=== PATIENT | female | born 1980 ===

== ENCOUNTER 2018-10-15 11:20 | Outpatient (CLI) | payer OTHER ==
[~2018-10-15] VITALS: Ht 162.6 cm; Wt 49.9 kg
== END 2018-10-15 11:40 | disposition home or self-care (01) ==
LOC: OFIC 805 11:20
DX: R05 Cough (principal); J11.1 Influenza due to unidentified influenza virus with other respiratory manifestations; R22.1 Localized swelling, mass and lump, neck

== ENCOUNTER 2019-02-11 22:32 | Emergency (ER) | payer OTHER ==
[~2019-02-11] VITALS: Ht 162.6 cm; Wt 49.9 kg
[2019-02-11] MEDS ORDERED: ANTICONCEPTIVAS (22:50)
== END 2019-02-12 02:52 | disposition home or self-care (01) ==
LOC: ER 22:32
DX: S50.01XA Contusion of right elbow, initial encounter (principal); W18.39XA Other fall on same level, initial encounter; Y93.89 Activity, other specified; Y92.098 Other place in other non-institutional residence as the place of occurrence of the external cause; Y99.8 Other external cause status